=== PATIENT | male | born 1980 | race Caucasian/White ===

== ENCOUNTER → 2020-09-13 | Outpatient (CLI) | payer BC | LOC: LAB 09:55 | DX: R07.9 Chest pain, unspecified (principal) | CPT/HCPCS: 36415; 80061; 84436; 84443 ==

== ENCOUNTER 2020-11-30 22:23 | Emergency (ER) | payer OTHER ==
[2020-11-30 22:57] LABS: HEMOGLOBIN 14.8 gm/dl (14.0-17.5); RED BLOOD COUNT 4.84 M/UL (4.20-5.50); WHITE BLOOD COUNT 6.7 K/UL (4.5-11.0)
[2020-11-30 23:18] LABS: BUN/CREATININE RATIO 9 (0-10)
== END 2020-12-01 07:34 | disposition short-term general hospital (02) ==
LOC: ER1 22:23
PROVIDERS: Emergency Medicine
DX: R56.9 Unspecified convulsions (principal); I10 Essential (primary) hypertension; Z88.8 Allergy status to other drugs, medicaments and biological substances; Z20.822 Contact with and (suspected) exposure to COVID-19
CPT/HCPCS: 36600; 70496; 70498; 71045; 80053; 80307; 82550; 82553; 82803; 83605; 83735; 83874; 83880; 84100; 84439; 84443; 84484; 85025; 85610; 85730; 87040; 93005; 96374; 99285; G0480; J2060; Q9967; U0002